=== PATIENT | male | born 1945 | race Two or more races ===

== ENCOUNTER 2020-12-11 11:52 | Emergency (ER) | payer MEDICARE ==
[~2020-12-11] VITALS: Ht 175.3 cm; Wt 103.0 kg
[2020-12-11 12:08] VITALS: BP 158/77
[2020-12-11] MEDS ORDERED: AZIT-21 PO (13:29)
== END 2020-12-11 14:54 | disposition home or self-care (01) ==
LOC: ER 11:52
DX: R05 Cough (principal); Z20.822 Contact with and (suspected) exposure to COVID-19; I10 Essential (primary) hypertension; Z79.899 Other long term (current) drug therapy
CPT/HCPCS: 71045; 87635; 99284; C9803